=== PATIENT | male | born 1960 | race Asian ===

== ENCOUNTER 2016-11-09 06:12 | Day surgery (SDC) | payer BC, OTHER ==
[2016-11-09] MEDS ORDERED: LACTATED RINGERS 1,000 ML IV ONE (06:33)
[2016-11-09] MEDS ORDERED: fentaNYL 100 MCG/2 ML VIAL IVP ONE (08:27)
[2016-11-09] MEDS ORDERED: MIDAZOLAM 2 MG/2 ML VIAL IVP ONE (08:27)
[2016-11-09 09:53] VITALS: BP 100/62
== END 2016-11-09 06:13 | disposition home or self-care (01) ==
LOC: SDS 06:12
PROVIDERS: ATTEND Surgery
PROC: 0DJD8ZZ Inspection of Lower Intestinal Tract, Via Natural or Artificial Opening Endoscopic (ICD-10-PCS; principal; 2016-11-09 07:30)
DX: Z12.11 Encounter for screening for malignant neoplasm of colon (principal); Z80.0 Family history of malignant neoplasm of digestive organs; Z87.891 Personal history of nicotine dependence; K64.8 Other hemorrhoids
CPT/HCPCS: 45378; J7120

== ENCOUNTER 2018-12-16 14:10 | Outpatient (CLI) | payer BC, OTHER ==
[2018-12-16 19:01] LABS: PSA FREE 0.97 ng/mL (0.16-2.81)
[2018-12-16 19:02] LABS: PSA TOTAL 4.67 ng/mL (0.000-2.000)
== END 2018-12-16 23:59 | disposition home or self-care (01) ==
LOC: LAB.WCP 14:10
PROVIDERS: ATTEND Family Medicine
DX: R97.20 Elevated prostate specific antigen [PSA] (principal)
CPT/HCPCS: 36415; 84153; 84154

== ENCOUNTER 2021-09-22 08:00 | Outpatient (CLI) | payer BC, OTHER ==
--- NOTE | 2021-09-22 17:26 | XRAY Report ---
PROCEDURE: Foot 3 View LT INDICATIONS: BONE SPUR OF L FOOT TECHNIQUE: 3 views of the foot were acquired. COMPARISON: None FINDINGS: Bones: No fractures or dislocations. No suspicious bony lesions. Small plantar calcaneal bone spur. Soft tissues: No tibiotalar joint effusion. Achilles tendon appears normal. IMPRESSION: Calcaneal bone spur. Reviewed by: Kylah Pal MD, PhD on 09/22/2021 5:24 PM PDT Approved by: Kylah Pal MD, PhD on 09/22/2021 5:24 PM PDT Station ID: [id number]
== END 2021-09-22 23:59 | disposition home or self-care (01) ==
LOC: DI.N 08:00
PROVIDERS: ATTEND Emergency Medicine
DX: M77.32 Calcaneal spur, left foot (principal)